=== PATIENT | female | born 1980 | race Two or more races ===

== ENCOUNTER 2021-11-03 06:21 | Emergency (ER) | payer MEDICAID, OTHER ==
[~2021-11-03] VITALS: Ht 165.1 cm; Wt 113.4 kg
[2021-11-03] MEDS ORDERED: SODIUM CHLORIDE 0.9% 1,000 ML IV ONE ×2 (07:30→11:00)
[2021-11-03 09:06] LABS: Urine Bacteria FEW /hpf (None Seen); Urine Blood Negative /uL (Negative); Urine Specific Gravity 1.003 (1.001-1.035); Urine WBC 5 /hpf (0 - 5)
[2021-11-03 18:33] VITALS: BP 102/58
== END 2021-11-03 18:50 | disposition home or self-care (01) ==
LOC: EDBD 06:21 → ER 06:21
DX: S16.1XXA Strain of muscle, fascia and tendon at neck level, initial encounter (principal); V49.9XXA Car occupant (driver) (passenger) injured in unspecified traffic accident, initial encounter; Y93.89 Activity, other specified; Y92.89 Other specified places as the place of occurrence of the external cause; Y99.8 Other external cause status
CPT/HCPCS: 36415; 70450; 71045; 72125; 73030; 80320; 81001; 96360; 96361; 99285; J7030